=== PATIENT | male | born 1945 | race Caucasian/White ===

== ENCOUNTER 2017-12-05 11:54 | Observation (INO) | payer MEDICARE, OTHER ==
[2017-12-05] MEDS ORDERED: ASPIRIN 81 MG PO STA (11:58)
[2017-12-05] MEDS ORDERED: NITROGLYCERIN OINT 1 INCH/GM PACKET TOPICAL STA (11:58)
--- NOTE | 2017-12-05 12:00 | ED ---
General Adult HPI - General Stated complaint: SOB Time Seen by Provider: 12/05/17 11:55 Source: RN notes reviewed - History of Present Illness Initial comments: This is a 72-year-old male who presents emergency room with a past medical history significant for hypertension and high cholesterol. Patient is a poor historian. Patient was at the [facility] having some injections into his lower back. After which she complained of some chest pain shortness of breath and dizziness. According to the patient the chest pain was a 2 or 3 out of 10 now it's about a 1 out of 10. Patient states she still feeling a little lightheaded and still complains of mild shortness of breath. Patient denies any radiation of the pain. Patient denies any recent fever chills or cough. Patient denies any syncopal episode or near syncopal episode. Patient denies abdominal pain patient denies nausea vomiting or diarrhea. Patient denies any recent history of trauma or illness. - Related Data Home Medications Medication Instructions Recorded Confirmed ALPRAZolam [Xanax] 0.25 mg PO BID PRN 03/30/15 12/05/17 Atenolol [Tenormin] 25 mg PO DAILY 03/30/15 12/05/17 Enalapril [Vasotec] 2.5 mg PO DAILY 03/30/15 12/05/17 Latanoprost Ophth [Xalatan 0.005%] 1 drops BOTH EYES HS 03/30/15 12/05/17 Omeprazole [PriLOSEC] 20 mg PO AC-BID 03/30/15 12/05/17 Simvastatin [Zocor] 40 mg PO DAILY 03/30/15 12/05/17 Aspirin 81 mg PO DAILY 07/06/15 12/05/17 Calcium Carbonate/Vitamin D3 1 tab PO DAILY 12/05/17 12/05/17 [Calcium 600-Vit D3 400 Caplet] Meloxicam [Mobic] 15 mg PO DAILY 12/05/17 12/05/17 Allergies Allergy/AdvReac Type Severity Reaction Status Date / Time No Known Allergies Allergy Verified 12/05/17 12:19 Review of Systems ROS Statement: Those systems with pertinent positive or pertinent negative responses have been documented in the HPI. ROS Other: All systems not noted in ROS Statement are negative. Past Medical History Past Medical History: GERD/Reflux, Hyperlipidemia, Hypertension, Myocardial Infarction ([place]) Additional Past Medical History / Comment(s): Colon polyps, [place] Last Myocardial Infarction Date:: 2004 History of Any Multi-Drug Resistant Organisms: None Reported Past Surgical History: Heart Catheterization, Prostate Surgery Past Anesthesia/Blood Transfusion Reactions: No Reported Reaction Past Psychological History: Anxiety Smoking Status: Never smoker Past Alcohol Use History: None Reported Past Drug Use History: None Reported - Past Family History Brother(s) Family Medical History: Myocardial Infarction ([place]) General Exam - General Exam Comments Initial Comments: GENERAL: Patient is well-developed and well-nourished. Patient is nontoxic and well- hydrated and is in no acute distress. ENT: Neck is soft and supple. No significant lymphadenopathy is noted. Oropharynx is clear. Moist mucous membranes. Neck has full range of motion without eliciting any pain. EYES: The sclera were anicteric and conjunctiva were pink and moist. Extraocular movements were intact and pupils were equal round and reactive to light. Eyelids were unremarkable. PULMONARY: Unlabored respirations. Good breath sounds bilaterally. No audible rales rhonchi or wheezing was noted. CARDIOVASCULAR: There is a regular rate and rhythm without any murmurs gallops or rubs. ABDOMEN: Soft and nontender with normal bowel sounds. No palpable organomegaly was noted. There is no palpable pulsatile mass. SKIN: Skin is clear with no lesions or rashes and otherwise unremarkable. NEUROLOGIC: Patient is alert and oriented 2. Cranial nerves II through XII are grossly intact. Motor and sensory are also intact. Normal speech, volume and content. Symmetrical smile. MUSCULOSKELETAL: Normal extremities with adequate strength and full range of motion. No lower extremity swelling or edema. No calf tenderness. LYMPHATICS: No significant lymphadenopathy is noted PSYCHIATRIC: Normal psychiatric evaluation. Normal interpersonal interactions appears functionally intact in deals appropriately with others. No signs of depression. No signs of anxiety. Course Vital Signs 12/05/17 12/05/17 11:59 12:46 Temperature 97.3 F L Pulse Rate 54 L 56 L Respiratory 18 18 Rate Blood Pressure 193/94 168/85 O2 Sat by Pulse 93 L 98 Oximetry Medical Decision Making - Medical Decision Making EKG shows sinus bradycardia 55 bpm [place] interval is 162 QRS is 84 QT interval is 444 QTC is 424. Patient's EKG shows no ST segment elevation or depression or T wave normalities are noted. Chest x-ray shows no acute abnormality. After patient received nitro paste patient's chest pain resolved. Spoke with Dr. Vaughn he agreed the patient needed to be admitted I admitted the patient I wrote admitting orders - Lab Data Result diagrams: 12/05/17 12:00 12/05/17 12:00 Lab Results 12/05/17 12/05/17 12/05/17 Range/Units 12:00 12:00 12:00 WBC 15.4 H (3.8-10.6) k/uL RBC 5.06 (4.30-5.90) m/uL Hgb 15.0 (13.0-17.5) gm/dL Hct 45.0 (39.0-53.0) % MCV 89.0 (80.0-100.0) fL MCH 29.7 (25.0-35.0) pg MCHC 33.4 (31.0-37.0) g/dL RDW 13.7 (11.5-15.5) % Plt Count 175 (150-450) k/uL Neutrophils % (Manual) 29 % Lymphocytes % (Manual) 67 % Monocytes % (Manual) 3 % Eosinophils % (Manual) 2 % Neutrophils # (Manual) 4.47 (1.3-7.7) k/uL Lymphocytes # (Manual) 10.32 H (1.0-4.8) k/uL Monocytes # (Manual) 0.46 (0-1.0) k/uL Eosinophils # (Manual) 0.31 (0-0.7) k/uL Nucleated RBCs 0 (0-0) /100 WBC Poikilocytosis (manual Present Anisocytosis (manual) Present PT (9.0-12.0) sec INR (<1.2) APTT (22.0-30.0) sec Sodium 143 (137-145) mmol/L Potassium 4.5 (3.5-5.1) mmol/L Chloride 105 (98-107) mmol/L Carbon Dioxide 27 (22-30) mmol/L Anion Gap 11 mmol/L BUN 28 H (9-20) mg/dL Creatinine 1.10 (0.66-1.25) mg/dL Est GFR (MDRD) Af Amer >60 (>60 ml/min/1.73 sqM) Est GFR (MDRD) Non-Af >60 (>60 ml/min/1.73 sqM) Glucose 125 H (74-99) mg/dL Calcium 9.5 (8.4-10.2) mg/dL Magnesium 2.1 (1.6-2.3) mg/dL Total Bilirubin 0.5 (0.2-1.3) mg/dL AST 21 (17-59) U/L ALT 31 (21-72) U/L Alkaline Phosphatase 213 H (38-126) U/L Total Creatine Kinase 48 L (55-170) U/L CK-MB (CK-2) 0.9 (0.0-2.4) ng/mL CK-MB (CK-2) Rel Index 1.9 Troponin I <0.012 (0.000-0.034) ng/mL Total Protein 7.4 (6.3-8.2) g/dL Albumin 4.3 (3.5-5.0) g/dL 12/05/17 Range/Units 12:00 WBC (3.8-10.6) k/uL RBC (4.30-5.90) m/uL Hgb (13.0-17.5) gm/dL Hct (39.0-53.0) % MCV (80.0-100.0) fL MCH (25.0-35.0) pg MCHC (31.0-37.0) g/dL RDW (11.5-15.5) % Plt Count (150-450) k/uL Neutrophils % (Manual) % Lymphocytes % (Manual) % Monocytes % (Manual) % Eosinophils % (Manual) % Neutrophils # (Manual) (1.3-7.7) k/uL Lymphocytes # (Manual) (1.0-4.8) k/uL Monocytes # (Manual) (0-1.0) k/uL Eosinophils # (Manual) (0-0.7) k/uL Nucleated RBCs (0-0) /100 WBC Poikilocytosis (manual Anisocytosis (manual) PT 10.0 (9.0-12.0) sec INR 1.0 (<1.2) APTT 22.1 (22.0-30.0) sec Sodium (137-145) mmol/L Potassium (3.5-5.1) mmol/L Chloride (98-107) mmol/L Carbon Dioxide (22-30) mmol/L Anion Gap mmol/L BUN (9-20) mg/dL Creatinine (0.66-1.25) mg/dL Est GFR (MDRD) Af Amer (>60 ml/min/1.73 sqM) Est GFR (MDRD) Non-Af (>60 ml/min/1.73 sqM) Glucose (74-99) mg/dL Calcium (8.4-10.2) mg/dL Magnesium (1.6-2.3) mg/dL Total Bilirubin (0.2-1.3) mg/dL AST (17-59) U/L ALT (21-72) U/L Alkaline Phosphatase (38-126) U/L Total Creatine Kinase (55-170) U/L CK-MB (CK-2) (0.0-2.4) ng/mL CK-MB (CK-2) Rel Index Troponin I (0.000-0.034) ng/mL Total Protein (6.3-8.2) g/dL Albumin (3.5-5.0) g/dL Disposition Clinical Impression: Chest pain, Dyspnea Disposition: ADMITTED IP TO THIS HOSP Referrals: None,Stated [Primary Care Provider] - 1-2 days Time of Disposition: 13:50
[2017-12-05 12:28] LABS: ALT 31 U/L (21-72); AST 21 U/L (17-59); Albumin 4.3 g/dL (3.5-5.0); Alkaline Phosphatase 213 U/L (38-126); Anion Gap 11 mmol/L; Blood Urea Nitrogen 28 mg/dL (9-20); Calcium 9.5 mg/dL (8.4-10.2); Carbon Dioxide 27 mmol/L (22-30); Chloride 105 mmol/L (98-107); Glucose 125 mg/dL (74-99); Magnesium 2.1 mg/dL (1.6-2.3); Potassium 4.5 mmol/L (3.5-5.1); Sodium 143 mmol/L (137-145); Total Bilirubin 0.5 mg/dL (0.2-1.3); Total Protein 7.4 g/dL (6.3-8.2)
[2017-12-05 12:29] LABS: Partial Thromboplastin Time 22.1 sec (22.0-30.0)
--- NOTE | 2017-12-05 12:34 | XR ---
EXAMINATION TYPE: XR chest 2V DATE OF EXAM: 12/05/2017 COMPARISON: Chest x-ray December 23, 2013. CT chest abdomen and pelvis May 15, 2016 HISTORY: Chest pain and shortness of breath. TECHNIQUE: Frontal and lateral views of the chest are obtained. FINDINGS: Patchy basilar reticulonodular opacities are felt present. No large pleural effusion or pn eumothorax is seen bilaterally. The cardiac silhouette size is upper limits of normal currently. The osseous structures are intact. IMPRESSION: Possible developing patchy bibasilar reticulonodular infiltrates. Consider progress study .
[2017-12-05 12:41] LABS: Creatine Kinase 48 U/L (55-170)
[2017-12-05 12:52] LABS: Creatine Kinase MB 0.9 ng/mL (0.0-2.4); MCH 29.7 pg (25.0-35.0); MCHC 33.4 g/dL (31.0-37.0); Mean Platelet Volume 7.1; Platelet Count 175 k/uL (150-450); RBC 5.06 m/uL (4.30-5.90); RDW 13.7 % (11.5-15.5); Troponin I <0.012 ng/mL (0.000-0.034); WBC 15.4 k/uL (3.8-10.6)
[2017-12-05 13:11] LABS: Eosinophils # (M) 0.31 k/uL (0-0.7); Lymphocytes # (M) 10.32 k/uL (1.0-4.8); Monocytes # (M) 0.46 k/uL (0-1.0); Neutrophils # (M) 4.47 k/uL (1.3-7.7); Neutrophils % (M) 29 %; Nucleated Red Blood Cells 0 /100 WBC (0-0); Total Cells Counted 200
[2017-12-05 13:12] LABS: Anisocytosis (M) Present; Poikilocytosis (M) Present
[2017-12-05] MEDS ORDERED: NITROGLYCERIN SL TABS 0.4 MG TAB SUBLINGUAL PRN (13:50)
[2017-12-05] MEDS ORDERED: ACETAMINOPHEN TAB 325 MG TAB PO STA (14:32)
[2017-12-05] MEDS ORDERED: ALPRAZolam 0.25 MG TAB PO PRN (17:52)
[2017-12-05] MEDS: NITROGLYCERIN OINT 1 INCH/GM PACKET TOPICAL SCH (19:14)
[2017-12-05 19:31] VITALS: RESP 16
[2017-12-05 19:38] LABS: Creatine Kinase 46 U/L (55-170)
[2017-12-05 19:50] LABS: Creatine Kinase MB 0.8 ng/mL (0.0-2.4); Troponin I <0.012 ng/mL (0.000-0.034)
[2017-12-05] MEDS ORDERED: LATANOPROST 0.005% OPHTH DROPS 2.5 ML BTL BOTH EYES SCH (21:00)
[2017-12-06 00:42] LABS: Creatine Kinase 48 U/L (55-170)
[2017-12-06 00:58] LABS: Creatine Kinase MB 0.8 ng/mL (0.0-2.4); Troponin I <0.012 ng/mL (0.000-0.034)
[2017-12-06] MEDS: NITROGLYCERIN OINT 1 INCH/GM PACKET TOPICAL SCH ×2 (03:00→05:06)
[2017-12-06 06:20] LABS: Cholesterol 160 mg/dL (<200); HDL Cholesterol 54 mg/dL (40-60); LDL Cholesterol,Calculated 79 mg/dL (0-99); Triglycerides 137 mg/dL (<150)
[2017-12-06] MEDS ORDERED: PANTOPRAZOLE 40 MG TABLET PO SCH (07:30)
[2017-12-06] MEDS ORDERED: AMINOPHYLLINE 250 MG/10 ML VIAL IV ONE (08:00)
[2017-12-06] MEDS ORDERED: AMINOPHYLLINE 500 MG/20 ML VIAL IV PRN (08:07)
[2017-12-06] MEDS ORDERED: REGADENOSON 0.4 MG/5 ML SYRINGE IV ONE (08:07)
[2017-12-06 08:14] VITALS: TEMP 97.9
[2017-12-06] MEDS ORDERED: ASPIRIN 325 MG TAB PO SCH (09:00)
[2017-12-06] MEDS ORDERED: ATENOLOL 25 MG TAB PO SCH (09:00)
[2017-12-06] MEDS ORDERED: ASPIRIN 81 MG PO SCH (09:00)
[2017-12-06] MEDS ORDERED: LISINOPRIL 5 MG TAB PO SCH (09:00)
[2017-12-06] MEDS ORDERED: ATORVASTATIN 20 MG TAB PO SCH (09:00)
--- NOTE | 2017-12-06 09:00 | CONS ---
CONSULTATION Mr. Remy is a 72-year-old male with known history of hypertension and hyperlipidemia who presented with symptoms of chest discomfort. He underwent an epidural injection yesterday and he felt somewhat dyspneic. Has some dizziness and vague chest discomfort. According to him, he has been having the discomfort for a long time. He is not active physically. He has some dyspnea on exertion. With activity no peripheral edema. No PND, no orthopnea. He has some dizziness and palpitation, but no syncope. He has been followed by Dr. VC Arce in the past and has underwent coronary angiography in 2006 that revealed no evidence of obstructive coronary artery disease. He had a stress test in January 2016 that revealed no inducible ischemia. His left ventricular systolic function by echocardiography was preserved. He has mild-to- moderate tricuspid regurgitation and mild mitral regurgitation. His coronary risk factors are remarkable for hypertension, hyperlipidemia. He is a nonsmoker, nondiabetic. MEDICATION: At home include vitamin D, aspirin, simvastatin 40 mg daily. Mobic 15 mg daily, Vasotec 2.5 mg daily and atenolol 25 mg daily. REVIEW OF SYSTEMS: RESPIRATORY SYSTEM: He has no history of documented asthma, emphysema or bronchitis. GI SYSTEM: No recent GI bleed. No peptic ulcer disease. SYSTEM: No dysuria or hematuria. NERVOUS SYSTEM: No stroke or seizure. MUSCULOSKELETAL: He has chronic back pain. PHYSICAL EXAMINATION: A 72-year-old male, alert, oriented, in no apparent distress. Blood pressure 140/70 with a heart rate in the 60s. HEAD: Normocephalic/ EYES: Sclerae nonicteric. NECK: Good upstroke. No bruit. No jugular venous distention. LUNGS: Clear to auscultation. HEART: Regular rate and rhythm, S1, S2. No S3. No rub or gallop. ABDOMEN: Soft, nontender. Positive bowel sounds. No organomegaly. EXTREMITIES: No edema. Intact pulses. LAB DATA: Revealed hemoglobin of 15, white blood cell 15.4, potassium 4.5, BUN and creatinine 28 and 1.0. Troponin less than 0.012 for 3 samples. Cholesterol 160, LDL of 79. EKG revealed a sinus mechanism with a normal axis and intervals at a rate of 55. IMPRESSION: 1. Chest discomfort, has atypical feature for ischemic heart disease, probably noncardiac. 2. History of hypertension. 3. Hyperlipidemia. 4. History of chronic back pain. RECOMMENDATION: I have recommended to stop the nitrate and I will proceed with a Lexiscan myocardial perfusion imaging as well as an echocardiogram and depending on those findings, further recommendation will be made. Thank you for this consult. Will follow with you. JACOBO / IJN: [id number] /
[2017-12-06 11:31] VITALS: BP 174/92; PULSE 69
--- NOTE | 2017-12-06 11:39 | NM ---
EXAMINATION TYPE: NM stress lexiscan cardiolite DATE OF EXAM: 12/06/2017 COMPARISON: NONE HISTORY: Chest pain TECHNIQUE: After the intravenous administration of 11 mCi Tc 99m Sestamibi - Cardiolite resting SPEC T images acquired 49 minutes post injection. The patient received 0.4mg Lexiscan, 30 mCi Tc 99m Sestamibi - Stress images obtained 36 minutes post injection FINDINGS: There is diminished radiotracer accumulation along the inferior wall on both rest and stress images. This may be a prior infarct. This is not clearly identified as a diaphragm artifact. The liver howeve r does appear to be elevated in relation to the heart. Reversible perfusion defect is not identified. Correlate with EKG changes. The ejection fraction is calculated to be normal at 74%. Gated wall motion appears normal. IMPRESSION: 1. Fixed defect along the inferior wall. Prior infarct may be present. Diaphragm artifact is conside red less likely. Correlate with EKG changes.
[2017-12-06] MEDS ORDERED: CALCIUM CARB-VIT D 500MG-200UN 1 EACH TAB PO SCH (12:00)
--- NOTE | 2017-12-06 13:35 | P.HPIM ---
History of Present Illness H&P Date: 12/05/17 Chief Complaint: Chest pain, shortness of breath, abnormal EKG, shortly reaction to epidural 72-year-old male who was apparently at [facility] today for epidural injection when he developed to have significant midsternal chest pain to out of 10 symptoms become significantly bit worse along with significant shortness of breath. He developed to have lightheadedness and not feeling well mild arrhythmia palpitation and cold sweat with nausea feeling. With the above symptoms patient ended up being sent to the emergency department. Was seen and evaluated at [facility] for the above problem his symptom with chest tightness had improved with nitroglycerin with a current symptom along with the slight abnormality in his EKG decided to admit patient to the observation unit have cardiology seen him with do serial cardiac enzyme over the next 24 hours. Review of Systems Constitutional: Reports fatigue, Reports malaise, Denies as per HPI, Denies anorexia, Denies chills, Denies chronic headaches, Denies chronic pain, Denies daytime sleepiness, Denies fever, Denies lethargy, Denies night sweats, Denies poor appetite, Denies sweats, Denies weakness, Denies weight gain, Denies weight loss Eyes: bilateral as per HPI, bilateral blurred vision Ears: bilateral: decreased hearing, ear discharge Ears, nose, mouth and throat: Reports nasal congestion, Reports nasal discharge , Reports nose pain, Reports sinus pain, Reports sinus pressure, Denies as per HPI, Denies ant. neck pain, Denies bleeding gums, Denies dental pain, Denies dysphagia, Denies epistaxis, Denies headache, Denies hoarseness, Denies mouth pain, Denies neck fullness/pressure, Denies neck lump, Denies odynophagia, Denies post-nasal drip, Denies swelling in mouth, Denies swelling in throat, Denies sore throat, Denies vertigo, Denies voice changes Cardiovascular: Reports chest pain, Reports decreased exercise tolerance, Reports dyspnea on exertion, Reports high blood pressure, Reports irregular heart beat, Reports lightheadedness, Reports orthopnea, Reports paroxysmal nocturnal dyspnea, Reports rapid heart beat, Reports shortness of breath, Denies as per HPI, Denies claudication, Denies edema, Denies leg edema, Denies palpitations, Denies phlebitis, Denies syncope Respiratory: Reports congestion, Reports cough, Reports dyspnea, Reports pain on inspiration, Denies as per HPI, Denies cough with sputum, Denies excessive sputum, Denies hemoptysis, Denies home oxygen, Denies pain, Denies pleurisy, Denies respiratory infections, Denies sleep apnea, Denies snoring, Denies wheezing Gastrointestinal: Reports abdominal pain, Reports bloating, Reports change in bowel habits, Reports dyspepsia, Reports early satiety, Reports indigestion, Reports nausea, Denies as per HPI, Denies belching, Denies BRBPR, Denies coffee ground emesis, Denies constipation, Denies diarrhea, Denies excessive gas, Denies heartburn, Denies hematemesis, Denies hematochezia, Denies jaundice, Denies lactose intolerance, Denies loss of appetite, Denies melena, Denies vomiting Genitourinary: Reports flank pain, Reports nocturia, Reports polyuria, Denies as per HPI, Denies decreased libido, Denies difficulties fathering child, Denies discharge, Denies dysuria, Denies erectile dysfunction, Denies genital pain, Denies genital sores, Denies hematuria, Denies impotence, Denies incontinence, Denies kidney stones, Denies testicular lump, Denies testicular pain, Denies urinary frequency, Denies urinary hesitancy, Denies urinary retention Musculoskeletal: Reports arm numbness/tingling, Denies as per HPI, Denies atrophy, Denies fractures, Denies frequent falls, Denies gait dysfunction, Denies hot joints, Denies leg numbness/tingling, Denies limitation of motion, Denies loss of height, Denies low back pain, Denies morning stiffness, Denies muscle cramps, Denies muscle weakness, Denies myalgias, Denies neck pain, Denies neck stiffness, Denies prior amputations, Denies redness of joints, Denies shooting arm pain, Denies shooting leg pain Integumentary: Reports pruritus, Reports rash, Denies as per HPI, Denies acne, Denies boils, Denies brittle nails, Denies change in hair/nails, Denies color changes, Denies darkening of skin, Denies depigmentation, Denies dryness, Denies foot/leg ulcers, Denies growths, Denies hirsutism, Denies lesions, Denies onychomycosis, Denies sores, Denies striae, Denies unusual bruising, Denies wounds Neurological: Reports ataxia, Reports gait dysfunction, Reports paresthesias, Reports tingling, Reports tremors, Reports weakness, Denies as per HPI, Denies aphasia, Denies balance difficulties, Denies burning pain, Denies change in mentation, Denies change in smell/taste, Denies change in speech, Denies confusion, Denies convulsions, Denies double vision, Denies head injury, Denies headaches, Denies hearing difficulties, Denies lack of coordination, Denies loss of vision, Denies memory loss, Denies migraines, Denies motor disturbance, Denies numbness, Denies paralysis, Denies seizures, Denies sensory deficit, Denies spasticity, Denies syncope, Denies tic, Denies transient paralysis, Denies vertigo, Denies visual changes Psychiatric: Reports anhedonia, Reports anxiety, Reports depression, Reports disorientation, Reports hallucinations, Reports irritability, Reports sadness/ tearfulness, Denies as per HPI, Denies anxiety attacks, Denies change in appetite, Denies change in libido, Denies change in sleep habits, Denies confusion, Denies difficulty concentrating, Denies hopelessness, Denies hypersomnia, Denies insomnia, Denies memory loss, Denies mood swings, Denies paranoia, Denies sleep disturbances, Denies suicidal ideation Endocrine: Reports cold intolerance, Reports fatigue, Reports nocturia, Reports polyuria, Denies as per HPI, Denies deepening of the voice, Denies excessive sweating, Denies excessive thirst, Denies flushing, Denies heat intolerance, Denies high blood sugars, Denies increase in ring/shoe/hat size, Denies low blood sugars, Denies palpitations, Denies polydipsia, Denies polyphagia, Denies proptosis, Denies recent glucocorticoid use, Denies thyroid mass, Denies weight change Hematologic/Lymphatic: Denies as per HPI, Denies easy bleeding, Denies easy bruising, Denies lymphadenopathy, Denies lymphedema, Denies thrombophilia Allergic/Immunologic: Denies as per HPI, Denies allergic rhinitis, Denies anaphylaxis, Denies angioedema, Denies gluten intolerance, Denies persistent infections, Denies seasonal allergies, Denies urticaria, Denies wheezing Past Medical History Past Medical History: Cancer, Eye Disorder, GERD/Reflux, GI Bleed, Hyperlipidemia, Hypertension, Myocardial Infarction ([place]), Osteoarthritis (OA), Prostate Disorder Additional Past Medical History / Comment(s): Colon polyps,SHINGLES SEP 2017, LT EAR [place], HX PROSTATE CANCER(SX) PT STATED TOLD AT [facility] A WEEK AGO THAT THE CANCER CAME BACK-NO TX YET Last Myocardial Infarction Date:: 2004 History of Any Multi-Drug Resistant Organisms: None Reported Past Surgical History: Heart Catheterization, Prostate Surgery Additional Past Surgical History / Comment(s): COLONOSCOPY,BACK INJECTIONS Past Anesthesia/Blood Transfusion Reactions: No Reported Reaction Smoking Status: Current some day smoker - Past Family History Father Family Medical History: Myocardial Infarction (ID) Mother Family Medical History: No Reported History Additional Family Medical History / Comment(s): " FROM OLD AGE" Brother(s) Family Medical History: Myocardial Infarction ([place]) Medications and Allergies Home Medications Medication Instructions Recorded Confirmed Type ALPRAZolam [Xanax] 0.25 mg PO BID PRN 03/30/15 12/05/17 History Atenolol [Tenormin] 25 mg PO DAILY 03/30/15 12/05/17 History Enalapril [Vasotec] 2.5 mg PO DAILY 03/30/15 12/05/17 History Latanoprost Ophth [Xalatan 0.005%] 1 drops BOTH EYES HS 03/30/15 12/05/17 History Omeprazole [PriLOSEC] 20 mg PO AC-BID 03/30/15 12/05/17 History Simvastatin [Zocor] 40 mg PO DAILY 03/30/15 12/05/17 History Aspirin 81 mg PO DAILY 07/06/15 12/05/17 History Calcium Carbonate/Vitamin D3 1 tab PO DAILY 12/05/17 12/05/17 History [Calcium 600-Vit D3 400 Caplet] Meloxicam [Mobic] 15 mg PO DAILY 12/05/17 12/05/17 History Allergies Allergy/AdvReac Type Severity Reaction Status Date / Time No Known Allergies Allergy Verified 12/05/17 12:19 Physical Exam Vitals: Vital Signs Temp Pulse Pulse Resp BP BP Pulse Ox 12/05/17 15:15 97.4 F L 66 18 177/94 93 L 12/05/17 14:31 61 20 179/99 97 12/05/17 12:46 56 L 18 168/85 98 12/05/17 11:59 97.3 F L 54 L 18 193/94 93 L Intake and Output 12/05/17 12/05/17 12/05/17 06:59 14:59 22:59 Other: Weight 83.915 kg 82.5 kg Patient Weight 12/06/17 06:59 Weight 82.5 kg - Constitutional General appearance: no average body habitus, cooperative, no disheveled, no mild distress, no morbidly obese, no acute distress, no obese, no severe distress, no thin - EENT Eyes: no abnormal pupil, no anicteric sclerae, no disc margins sharp, no edentulous, no EOMI, no PERRLA, no fundus normal, no photophobia, no dentition normal, no poor dentition, no ptosis, no scleral icterus, normal appearance ENT: no hard of hearing, no hearing grossly normal, no NA/AT, normal oropharynx , no other, no pharyngeal erythema, no thrush, no tonsillar exudates, no tonsillar swelling Ears: bilateral: normal - Neck Neck: no lymphadenopathy, normal ROM, no other, no rigidity, no stridor, no thyromegaly Carotids: bilateral: upstroke normal, upstroke delayed Thyroid: bilateral: normal size, enlarged - Respiratory Respiratory: bilateral: CTA, diminished, dullness, rales - Cardiovascular Rhythm: regular Heart sounds: normal: S1, S2 Abnormal Heart Sounds: systolic murmur, S3 Gallop - Gastrointestinal General gastrointestinal: no absent bowel sounds, decreased bowel sounds, distended, no hepatomegaly, no hyperactive bowel sounds, no normal bowel sounds , no organomegaly, no rigid, no scaphoid, soft, no splenomegaly, no tenderness, no umbilical hernia, no ventral hernia - Integumentary Integumentary: no calor, no cellulitis, no cyanotic, no decreased turgor, no flushed, no jaundiced, normal, no normal turgor, pale, rash, no ulcer - Neurologic Neurologic: CNII-XII intact - Musculoskeletal Musculoskeletal: gait normal, generalized weakness, strength equal bilaterally, no right sided weakness, no left sided weakness - Psychiatric Psychiatric: A&O x's 3, appropriate affect Results CBC & Chem 7: 12/05/17 12:00 12/05/17 12:00 Labs: Abnormal Lab Results - Last 24 Hours (Table) 12/05/17 12/05/17 12/05/17 Range/Units 12:00 12:00 12:00 WBC 15.4 H (3.8-10.6) k/uL Lymphocytes # (Manual) 10.32 H (1.0-4.8) k/uL Pathologist Review See comment A BUN 28 H (9-20) mg/dL Glucose 125 H (74-99) mg/dL Alkaline Phosphatase 213 H (38-126) U/L Total Creatine Kinase 48 L (55-170) U/L Assessment and Plan Assessment: 1 atypical chest pain: Not a clear etiology still could be cardiac at this point will admit patient to the hospital, serially of CK with troponin will be done consult cardiology will consider echocardiogram if any abnormality through the night patient might benefit from going for a stress test or heart catheter. 2 shortness of breath, patient does not require any oxygen is symptomatic improved on its own so far. 3 hypertension: Has been doing well on Tenormin 25 mg daily and enalapril 2.5 g a day. 4 hyperlipidemia: Has been on Zocor 40 mg a day. 5 severe GERD: Has been on Prilosec 20 mg twice a day. 6 chronic lower back pain: Patient has been doing epidural with pain management. Next 7 history of CAD with history of PE or ID: Apparently seeing cardiology regular basis. 8 history of breath prostate cancer: In remission has been doing well. DVT prophylaxis: Patient will be on heparin, Venodyne boots and knee-high ANNA hose. CODE STATUS: Full code. Expectation from this admission: Patient in the hospital for 1-2 nights.
--- NOTE | 2017-12-06 14:12 | P.DS ---
Providers Date of admission: 12/05/17 13:50 Expected date of discharge: 12/06/17 Attending physician: Hernan Vaughn Consults: 12/05/17 13:50 Consult Physician Urgent Consulting Provider: [facility] Consult Reason/Comments: Chest pain, dyspnea Do you want consulting provider notified?: Yes Primary care physician: Stated None Hospital Course: 72-year-old male who was apparently at [facility] today for epidural injection when he developed to have significant midsternal chest pain to out of 10 symptoms become significantly bit worse along with significant shortness of breath. He developed to have lightheadedness and not feeling well mild arrhythmia palpitation and cold sweat with nausea feeling. With the above symptoms patient ended up being sent to the emergency department. Was seen and evaluated at [facility] for the above problem his symptom with chest tightness had improved with nitroglycerin with a current symptom along with the slight abnormality in his EKG decided to admit patient to the observation unit have cardiology seen him with do serial cardiac enzyme over the next 24 hours. 12/06: Patient has been seen by cardiology and Lexiscan stress test ordered. There was a fixed defect along the inferior wall and prior infarct may be present. Patient has been cleared for discharge by cardiology and will be discharged home in stable condition with plan to follow-up with his special education professional and Dr. Glover. Echocardiogram has been done and report is pending at the time of discharge. Discharge diagnoses: 1 atypical chest pain 2 shortness of breath 3 hypertension 4 hyperlipidemia 5 severe GERD 6 chronic lower back pain 7 history of CAD with CA 8 history of breath prostate cancer: In remission Discharge plan: Return home Impression and plan of care have been directed as dictated by the signing physician. Zeinab Connelly nurse practitioner acting as scribe for signing physician. Patient Condition at Discharge: Good Plan - Discharge Summary Discharge Rx Participant: No New Discharge Prescriptions: Continue Simvastatin [Zocor] 40 mg PO DAILY Latanoprost Ophth [Xalatan 0.005%] 1 drops BOTH EYES HS Enalapril [Vasotec] 2.5 mg PO DAILY Atenolol [Tenormin] 25 mg PO DAILY ALPRAZolam [Xanax] 0.25 mg PO BID PRN PRN Reason: Anxiety Omeprazole [PriLOSEC] 20 mg PO AC-BID Aspirin 81 mg PO DAILY Calcium Carbonate/Vitamin D3 [Calcium 600-Vit D3 400 Caplet] 1 tab PO DAILY Meloxicam [Mobic] 15 mg PO DAILY Discharge Medication List ALPRAZolam [Xanax] 0.25 mg PO BID PRN 03/30/15 [History] Atenolol [Tenormin] 25 mg PO DAILY 03/30/15 [History] Enalapril [Vasotec] 2.5 mg PO DAILY 03/30/15 [History] Latanoprost Ophth [Xalatan 0.005%] 1 drops BOTH EYES HS 03/30/15 [History] Omeprazole [PriLOSEC] 20 mg PO AC-BID 03/30/15 [History] Simvastatin [Zocor] 40 mg PO DAILY 03/30/15 [History] Aspirin 81 mg PO DAILY 07/06/15 [History] Calcium Carbonate/Vitamin D3 [Calcium 600-Vit D3 400 Caplet] 1 tab PO DAILY 05/15 [History] Meloxicam [Mobic] 15 mg PO DAILY 12/05/17 [History] Follow up Appointment(s)/Referral(s): Garth Glover MD [REFERRING] - 1 Week Zuleika Arce MD [STAFF PHYSICIAN] - 12/27/17 4:00 pm Patient Instructions/Handouts: Chest Pain (GEN) Discharge Disposition: HOME SELF-CARE
--- NOTE | 2017-12-06 16:35 | ECHOF ---
Referral Reason: MEASUREMENTS -------- HEIGHT: 165.1 cm WEIGHT: 82.1 kg BP: RVIDd: 2.2 cm (< 3.3) IVSd: 1.1 cm (0.6 - 1.1) LVIDd: 4.2 cm (3.9 - 5.3) LVPWd: 1.1 cm (0.6 - 1.1) IVSs: 1.3 cm LVIDs: 3.4 cm LVPWs: 1.2 cm LA Diam: 3.9 cm (2.7 - 3.8) LAESV Index (A-L): 27.90 ml/m Ao Diam: 2.7 cm (2.0 - 3.7) AV Cusp: 1.4 cm (1.5 - 2.6) LA Diam: 4.3 cm (2.7 - 3.8) MV EXCURSION: 17.245 mm (> 18.000) MV EF SLOPE: 97 mm/s (70 - 150) EPSS: 0.4 cm MV E Malcolm: 0.85 m/s MV DecT: 245 ms MV A Malcolm: 0.62 m/s MV E/A Ratio: 1.35 AV maxP.76 mmHg AV maxP.76 mmHg AV meanP.38 mmHg RAP: 5.00 mmHg RVSP: 45.05 mmHg FINDINGS -------- Sinus rhythm. This was a technically excellent study. LV size, wall thickness and systolic function are normal, with an EF greater than 55%. The left awa tricular size is normal. The right ventricle is normal in size. Normal LA size by volume 22+/-6 ml/m2. The right atrial size is normal. Peak/mean gradient across the Aortic Valve is 19.76mmHg / 8.38mmHg. Normally functioning bioprosthe tic valve. Mild mitral regurgitation is present. Mild tricuspid regurgitation present. There is mild pulmonary hypertension. The right ventricular systolic pressure, as measured by Doppler, is 45.05mmHg. Trace/mild (physiologic) pulmonic regurgitation. The aortic root size is normal. There is no pericardial effusion. CONCLUSIONS -------- 1. Sinus rhythm. 2. LV size, wall thickness and systolic function are normal, with an EF greater than 55%. 3. The left ventricular size is normal. 4. Normal LA size by volume 22+/-6 ml/m2. 5. Peak/mean gradient across the Aortic Valve is 19.76mmHg / 8.38mmHg. 6. Mild mitral regurgitation is present. 7. Mild tricuspid regurgitation present. 8. There is mild pulmonary hypertension. 9. Trace/mild (physiologic) pulmonic regurgitation. 10. The aortic root size is normal. 11. There is no pericardial effusion. GENERAL FREIGHT AGENT: Samra Alexander RDCS
--- NOTE | 2017-12-06 18:15 | EST ---
EXERCISE STRESS AGE: 72 SEX: Male. HT: 5'6" WT: 180 pounds. PROTOCOL: Lexiscan Cardiolite. STAGE: DURATION OF EXERCISE: HEART RATE REST: 61 BLOOD PRESSURE REST: 152/75 MAXIMUM HEART RATE ACHIEVED: 101 MAXIMUM BLOOD PRESSURE: 152/75 85% MPHR: 126 100% MPHR: 148 METS: INDICATIONS: Chest pain. CLINICAL INFORMATION: Baseline rhythm is sinus mechanism, rate 61, normal axis and intervals, normal electrocardiogram. Baseline blood pressure 152/75 mmHg. Patient received an injection of Lexiscan. Electrocardiographic monitoring revealed no evidence of diagnostic ischemic ST deviation. Cardiolite was injected per protocol. CONCLUSION: 1. Nondiagnostic electrocardiographic stress testing. 2. Nuclear images will be reported separately. MMODL / IJN: [id number] /
== END 2017-12-06 13:40 | disposition home or self-care (01) ==
LOC: EC 11:54 → 3OBS 13:50
PROVIDERS: ADMIT Internal Medicine Geriatric Medicine; ATTEND Internal Medicine Geriatric Medicine
DX: R07.89 Other chest pain (principal); R06.02 Shortness of breath; R42 Dizziness and giddiness; R11.0 Nausea; R61 Generalized hyperhidrosis; R00.2 Palpitations; R06.09 Other forms of dyspnea; I49.9 Cardiac arrhythmia, unspecified; I10 Essential (primary) hypertension; R94.31 Abnormal electrocardiogram [ECG] [EKG]; E78.5 Hyperlipidemia, unspecified; K21.9 Gastro-esophageal reflux disease without esophagitis; Z79.899 Other long term (current) drug therapy; G89.29 Other chronic pain; M54.5 Low back pain; I25.2 Old myocardial infarction; I25.10 Atherosclerotic heart disease of native coronary artery without angina pectoris; E78.00 Pure hypercholesterolemia, unspecified; F17.200 Nicotine dependence, unspecified, uncomplicated; Z85.46 Personal history of malignant neoplasm of prostate; Z86.010 Personal history of colon polyps; I08.1 Rheumatic disorders of both mitral and tricuspid valves; Z79.1 Long term (current) use of non-steroidal anti-inflammatories (NSAID); Z79.82 Long term (current) use of aspirin; H91.90 Unspecified hearing loss, unspecified ear; F41.9 Anxiety disorder, unspecified; M19.90 Unspecified osteoarthritis, unspecified site; H57.9 Unspecified disorder of eye and adnexa
CPT/HCPCS: 99285; 36415; 93005; 93017; 93306; 80061; 80053; 82550; 82553; 83735; 84484; 85025; 85610; 85730; 71046; 78452; G0378 ×2; A9500; J2785; J0280

== ENCOUNTER → 2018-10-15 | Outpatient (CLI) | payer MEDICARE, OTHER ==
--- NOTE | 2018-10-15 14:52 | CT ---
EXAMINATION TYPE: CT abdomen pelvis w con DATE OF EXAM: 10/15/2018 COMPARISON: 05/15/2016 HISTORY: 73-year-old male follow-up Prostate CA TECHNIQUE: Contiguous axial scanning of the abdomen and pelvis following administration of 100 ml Iso lakisha 300 IV contrast. Delayed images through the kidneys and coronal/sagittal reconstructions perform ed. CT DLP: 1163.1 mGycm Automated exposure control for dose reduction was used. FINDINGS: Heart normal size without pericardial effusion. Coronary vessel calcifications are present and are re markable for coronary artery disease. Large caliber to the main right and left pulmonary arteries measuring up to 2.8 cm suggests underlyin g pulmonary arterial hypertension. Focal pleural parenchymal scarring at the right base with fine int erstitial fibrotic changes and mild traction bronchiectasis. Overall changes are similar to prior exa m. No consolidation or pleural effusion. Stable nodular peripheral enhancement in the right hepatic dome probably representing vascular shunti ng. No other focal liver lesion or biliary ductal dilatation. Portal venous system is patent. Gallbladder, adrenal glands, kidneys, and pancreas appear within normal limits. Spleen mildly enlarged at 15.6 cm, slightly increased from 14.9 cm, previously. Hilar splenules are n oted. No dilated small bowel, free fluid, or free air. Some scattered prominent retroperitoneal lymph nodes in the left para-aortic region measure up to 7 m m versus 5 mm, previously. Right common iliac chain lymph node appears larger measuring 2.1 x 1.2 cm versus 1.6 x 1.1 cm, previo usly, axial image 61. 6 mm left common iliac chain lymph node is unchanged. Right external iliac chain lymph node measures 1.6 x 1.3 cm versus 1.0 x 0.7 cm, previously, axial im age 72. 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 Surgical clips along the pelvic sidewalls. Left external iliac chain lymph node measures 1.8 x 1.2 cm versus 1.5 x 1.0 cm, previously. Mild stool wording. Normal appendix. Sigmoid diverticulosis without pericolonic inflammatory change. Status post prostatectomy. The lymphocele continues to have mass effect on to the right lateral bladd er wall. Bones: New patchy osteosclerosis of the left ischium and pubic bones with subacute to chronic nonunit ed pathologic fractures. There is insufficiency fracture of the right sacral alar and degenerative ch anges throughout the lumbar spine. Grade 1 retrolisthesis at L2-L3. IMPRESSION: 1. RIGHT COMMON AND BILATERAL EXTERNAL ILIAC CHAIN LYMPH NODES SHOW INCREASING SIZE FROM 05/15/2016 ME ASURING UP TO 2.1 X 1.2 CM VERSUS 1.6 X 1.1 CM, PREVIOUSLY. A FEW LEFT PARAAORTIC RETROPERITONEAL LYM PH NODES ARE MINIMALLY MORE FULL MEASURING UP TO 7 MM VERSUS 5 MM, PREVIOUSLY. CORRELATE WITH PSA MONICA UES FOR DISEASE RECURRENCE. 2. NEW OSTEO-SCLEROSIS LEFT ISCHIUM AND LEFT PUBIC BONES SUSPICIOUS FOR OSTEOBLASTIC METASTASES. ASSO CIATED SUBACUTE TO CHRONIC INCOMPLETELY UNITED FRACTURES OF THE SUPERIOR AND INFERIOR PUBIC RAMI. 3. SUSPECT A SUBACUTE INSUFFICIENCY FRACTURE OF THE RIGHT SACRAL ALA. 4. RELATIVELY STABLE 4.6 X 2.7 CM RIGHT PELVIC SIDEWALL LYMPHOCELE WITH MASS EFFECT ONTO THE LATERAL WALL OF THE BLADDER. 5. MILD SPLENOMEGALY (15.6 CM).
--- NOTE | 2018-10-15 15:53 | NM ---
EXAMINATION TYPE: NM bone scan whole body DATE OF EXAM: 10/15/2018 COMPARISON: CT same day HISTORY: 73-year-old male history of prostate cancer, staging Technique: Delayed whole-body scanning was performed following the injection of 25 mCi Tc 99m MDP. An terior and posterior projection Images acquired 3 hours post injection. Injection site: Left AC FINDINGS: There is focal intense abnormal tracer activity centered in the left ischium and left pubic bones cor responding to the areas of abnormal sclerosis on the CT. Additional asymmetric increased tracer activ ity along the right sacral alar. Scattered degenerative tracer activity at the shoulders, posterior e lements of the lower thoracic and lower lumbar spine, medial compartments of the knees, and bilateral first MTP joints. Intense activity also seen at the lateral left wrist. IMPRESSION: 1. Abnormal tracer activity involving the left ischium and left pubic bone corresponding to the regio ns of abnormal sclerosis on CT. Correlate with PSA values as findings are suspicious for osteoblastic metastases. CT also showed underlying ununited pelvic fractures here, likely pathologic fractures. 2. Intense focal activity lateral aspect left wrist probably on a degenerative basis. Clinically joaquín elate. Radiographs may be helpful. 3. Right sacral alar insufficiency fracture.
== END | disposition home or self-care (01) ==
LOC: RADNMMAIN 09:53
PROVIDERS: ATTEND Urology
DX: R16.1 Splenomegaly, not elsewhere classified (principal); I89.8 Other specified noninfective disorders of lymphatic vessels and lymph nodes; M89.8X8 Other specified disorders of bone, other site; S32.10XA Unspecified fracture of sacrum, initial encounter for closed fracture; C61 Malignant neoplasm of prostate
CPT/HCPCS: 82565; 84520; 74177; 36415; 78306; A9503; Q9967

== ENCOUNTER → 2020-08-03 | Outpatient (CLI) | payer MEDICARE, OTHER ==
--- NOTE | 2020-08-03 12:30 | CT ---
EXAMINATION TYPE: CT abdomen pelvis w con DATE OF EXAM: 08/03/2020 COMPARISON: 10/15/2018 INDICATION: prostate CA DLP: 1001.4 mGycm, Automated exposure control for dose reduction was used. CONTRAST: 100 mL of Isovue 300. Study performed with Oral Contrast TECHNIQUE: Axial images were obtained from above the diaphragm to the pubic rami in the axial plane a t 5 mm thick sections. Reconstructed images are reviewed on the computer in the coronal plane. FINDINGS: Limited CT sections are obtained the lung bases. The lung bases are clear. Some coronary artery chrystal cification is present. CT ABDOMEN: Liver: Normal Spleen: Normal Pancreas: Normal Adrenal glands: The adrenal glands are normal. Gallbladder: Normal Kidneys: No masses are evident. No hydronephrosis is present. No cysts are present. Delayed images were obtained through the kidneys, which remain unremarkable. Aorta: Vascular calcification is within the aorta. Inferior vena cava: Normal. CT PELVIS: Loops of bowel within the abdomen and pelvis are normal. Few diverticuli are scattered within the si gmoid colon. There are loops of bowel which are incompletely distended or lack oral contrast limiti ng their evaluation. Appendix: Normal as visualized. Urinary bladder: Decompressed with limited evaluation. Genitourinary structures: Prostate is not identified. There is been a prior prostatectomy with multip le surgical clips present. Lymphadenopathy: There is a 2.7 x 3.9 cm hypodense area with peripheral calcification in the right il iac region. This is diminished in size from comparison. Previous additional iliac chain and not great er canal lymphadenopathy is not evident. Osseous structures: There is an old left pubic ramus fracture. There is thickening and sclerosis of t he ischio ramus. Facet changes are in the lower lumbar spine. IMPRESSIONS: 1. Left pubic ramus and ischio ramus fractures with thickening and sclerosis compatible with worseni ng metastatic disease. 2. Diminished size right iliac chain node
--- NOTE | 2020-08-03 16:37 | NM ---
EXAMINATION TYPE: NM bone scan whole body DATE OF EXAM: 08/03/2020 COMPARISON: CT abdomen pelvis 08/03/2020, 10/15/2018 HISTORY: Prostate cancer Delayed whole-body scanning was performed following the injection of 24.5 mCi Tc 99m MDP. Images wer e acquired 3.5 hours post injection. FINDINGS: There is a focus of radiotracer accumulation along the anterior C6 right rib end likely is posttrauma tic in nature. Solitary rib and metastasis is considered less likely. Some mild uptake at the first metatarsal phalangeal joint spaces bilaterally is likely degenerative i n nature. Degenerative type changes are likely present within the bilateral knees and the left first carpal metacarpal junction. There is focal radiotracer accumulation within the anterior left hip region. There is a focus of radi otracer accumulation along the inferior pelvis may be within the left pubic ramus. This may be due to the nonunion of pelvic fractures through this region. However, the sclerotic areas also correspond t o the uptake suggesting underlying metastasis is also present at this level. IMPRESSION: 1. Uptake within the left pelvis corresponding to suspected metastatic lesions. 2. Uptake at the anterior right lower rib and more likely post traumatic in nature.
== END | disposition home or self-care (01) ==
LOC: RADNMMAIN 09:20
PROVIDERS: ATTEND Urology
DX: S32.502A Unspecified fracture of left pubis, initial encounter for closed fracture (principal); S32.602A Unspecified fracture of left ischium, initial encounter for closed fracture; M89.8X8 Other specified disorders of bone, other site; C61 Malignant neoplasm of prostate
CPT/HCPCS: 82565; 84520; 74177; 36415; 78306; A9503; Q9967

== ENCOUNTER → 2021-02-04 | Outpatient (CLI) | payer MEDICARE, OTHER | END | disposition home or self-care (01) | LOC: LABPAT 10:11 | PROVIDERS: ATTEND Student in an Organized Health Care Education/Training Program | DX: Z01.812 Encounter for preprocedural laboratory examination (principal); Z20.822 Contact with and (suspected) exposure to COVID-19 | CPT/HCPCS: U0003; C9803; U0005 ==

== ENCOUNTER 2021-02-11 08:48 | Day surgery (SDC) | payer MEDICARE, OTHER ==
[2021-02-09 10:52] VITALS: BMI 28.3
[~2021-02-11 08:48] MED LIST: LIDOCAINE 1% (10MG/ML) FOR IV START INTRADERMA PRN
[2021-02-11 09:27] VITALS: TEMP 96.9
[2021-02-11] MEDS: LACTATED RINGERS 1,000 ML IV SCH ×2 (09:32→09:36)
[2021-02-11] MEDS ORDERED: PROPOFOL 10 MG/ML 20 ML VIAL IV ONE (09:37)
--- NOTE | 2021-02-11 10:01 | P.OP ---
Date of Procedure: 02/11/21 Preoperative Diagnosis: Screening colonoscopy Procedure(s) Performed: Colonoscopy Anesthesia: MAC Surgeon: Nathaniel Mccloud Estimated Blood Loss (ml): 0 Condition: stable Disposition: PACU Description of Procedure: Patient brought operative suite remained in the left lateral decubitus position underwent sedation per department of anesthesia prepped and draped usual sterile fashion timeout performed correct patient correct procedure correct site was verified rectal exam was performed no gross abnormalities are noted. Scope was passed from the rectum to the cecum with the slowly withdrawn being sure to visualize all cash of the colon on the way out, two cecal polyps noted and removed via hot snare polypectomy. There was a third polyp in the ascending colon removed via hot snare polypectomy. Sigmoid diverticuli were noted. Scope was retroflexed in the rectum no gross abnormalities are noted patient tolerated procedure well no apparent complications
[2021-02-11] MEDS ORDERED: LACTATED RINGERS 1,000 ML IV ONE (10:03)
[2021-02-11] MEDS ORDERED: hydrALAZINE HCL 20 MG/ML 1 ML VIAL IVP STA (10:30)
[2021-02-11 10:32] VITALS: RESP 18
[2021-02-11] MEDS ORDERED: hydrALAZINE HCL 20 MG/ML 1 ML VIAL ONE (10:32)
[2021-02-11 11:06] VITALS: BP 167/78; PULSE 65
== END 2021-02-11 11:11 | disposition home or self-care (01) ==
LOC: ORWHC2ENDO 08:48
PROVIDERS: ATTEND Student in an Organized Health Care Education/Training Program
DX: Z12.11 Encounter for screening for malignant neoplasm of colon (principal); D12.0 Benign neoplasm of cecum; D12.2 Benign neoplasm of ascending colon; Z86.010 Personal history of colon polyps; K57.30 Diverticulosis of large intestine without perforation or abscess without bleeding; K21.9 Gastro-esophageal reflux disease without esophagitis; F41.9 Anxiety disorder, unspecified; I25.10 Atherosclerotic heart disease of native coronary artery without angina pectoris; E78.5 Hyperlipidemia, unspecified; M19.90 Unspecified osteoarthritis, unspecified site; H91.90 Unspecified hearing loss, unspecified ear; H40.9 Unspecified glaucoma; H26.9 Unspecified cataract; Z85.6 Personal history of leukemia; I10 Essential (primary) hypertension; Z90.79 Acquired absence of other genital organ(s); Z87.11 Personal history of peptic ulcer disease; Z82.49 Family history of ischemic heart disease and other diseases of the circulatory system; Z97.2 Presence of dental prosthetic device (complete) (partial); Z79.82 Long term (current) use of aspirin; Z79.51 Long term (current) use of inhaled steroids; Z79.899 Other long term (current) drug therapy; Z79.890 Hormone replacement therapy; Z79.891 Long term (current) use of opiate analgesic; Z79.1 Long term (current) use of non-steroidal anti-inflammatories (NSAID)
CPT/HCPCS: 88305; 45385; J0360; J2704

== ENCOUNTER → 2021-07-07 | Outpatient (CLI) | payer MEDICARE, OTHER ==
--- NOTE | 2021-07-07 13:03 | CT ---
EXAMINATION TYPE: CT ChestAbdPelvis w con DATE OF EXAM: 07/07/2021 COMPARISON: CT abdomen and pelvis and whole body bone scan August 03, 2020 and older studies. HISTORY: Prostate cancer, leukemia. CT DLP: 1113.1 mGycm. Automated Exposure Control for Dose Reduction was Utilized. CONTRAST: CT scan of the thorax, abdomen and pelvis is performed with oral and with IV Contrast, patient inject ed with 100 mL of Isovue M300. FINDINGS: LUNGS: Mild to moderate bibasilar parenchymal fibrotic changes redemonstrated. No suspicious new nodu les or masses. MEDIASTINUM: There are no greater than 1 cm hilar or mediastinal lymph nodes. No cardiomegaly or pe ricardial effusion is seen. Coronary artery calcification is redemonstrated which is noted marker fo r underlying coronary artery disease. OTHER: No additional significant abnormality is seen. LIVER/GB: No significant abnormality is appreciated. PANCREAS: No significant abnormality is seen. SPLEEN: Spleen is enlarged at 15.8 cm long axis axial image 60 similar to prior. ADRENALS: No significant abnormality is seen. KIDNEYS: Some cortical thinning bilaterally redemonstrated. BOWEL: Oral contrast reaches level transverse colon. No suspicious small or large bowel dilatation. N ormal contrast-filled appendix from cecum in the right lower quadrant incidentally noted. Some divert icula in sigmoid colon redemonstrated GENITAL ORGANS: Prostate surgically absent. Scattered surgical clips and pelvic phleboliths. Stable t hin-walled 4.2 x 2.6 cm rim calcified right pelvic cyst or cystic lesion or fluid collection with loc al mass effect. Etiology uncertain but presumably benign. Surgical changes right groin region. LYMPH NODES: No new greater than 1cm abdominal or pelvic lymph nodes are appreciated. Stable prominen t but sub-8 mm short axis right iliac chain lymph node axial image 108 OSSEOUS STRUCTURES: Slight grade 1 retrolisthesis with moderate to severe narrowing L2-L3 level. Face t arthropathy lower lumbar spine. Focal sclerosis anterior right mid to lower rib corresponds to the area of abnormality on prior bone scan. Enlarged sclerotic lesions with nonhealed fracture through th e left superior and inferior pelvic rami are redemonstrated. Small sclerotic lesion inferior left sac roiliac joint redemonstrated. No definitive new sclerotic lesions. OTHER: No significant additional abnormality is seen. IMPRESSION: No new or enlarging mass or adenopathy. Stable sclerotic osseous metastatic disease with nonhealed pathologic fractures left pelvis redemonstrated.
--- NOTE | 2021-07-07 15:00 | NM ---
EXAMINATION TYPE: NM bone scan whole body DATE OF EXAM: 07/07/2021 COMPARISON: Same day whole body CT. Prior nuclear medicine bone scan August 03, 2020 HISTORY: History of prostate cancer and leukemia. Delayed whole-body scanning was performed following the injection of 22.2 mCi Tc 99m MDP. Images acq uired 3 hours post injection. Whole body images in anterior and posterior projection along with addit ional projections of the thorax abdomen and pelvis. FINDINGS: Persistent focus of increased radiotracer uptake anterior right mid to lower rib corresponds to scler otic expansile rib lesion near costochondral junction. Persistent increased radiotracer uptake left superior and pelvic rami corresponding to the nonhealed pathologic fractures. Persistent mild uptake at bilateral first metatarsal phalangeal joint consistent with degenerative ch romulo related to hallux valgus deformities bilaterally. Persistent increased uptake right knee joint p resumed related to degenerative change. New Radiotracer uptake in the lateral mid thoracic chest region appears to correspond to skin presume d contamination on the additional oblique projections. IMPRESSION: Nonhealed pathologic fractures left superior and inferior pelvic rami. Persistent radiotr acer uptake anterior right mid to lower rib correlates with additional ossific metastatic focus. No n ew ossific metastatic disease identified.
== END | disposition home or self-care (01) ==
LOC: RADNMMAIN 09:49
PROVIDERS: ATTEND Internal Medicine Hematology & Oncology
DX: C79.51 Secondary malignant neoplasm of bone (principal); M84.454A Pathological fracture, pelvis, initial encounter for fracture; Z85.46 Personal history of malignant neoplasm of prostate; Z85.6 Personal history of leukemia
CPT/HCPCS: 82565; 84520; 71260; 74177; 36415; 78306; A9503; Q9967 ×2

== ENCOUNTER → 2021-12-14 | Outpatient (CLI) | payer MEDICARE, OTHER ==
[2021-12-14 19:19] LABS: HCT 37.5 % (39.6-50.0); HGB 11.3 g/dL (13.0-17.0); MCH 28.4 pg (27.0-32.0); MCHC 30.1 g/dL (32.0-37.0); MCV 94.2 fL (80.0-97.0); Mean Platelet Volume 9.9 fL (9.5-12.2); NRBC Per 100 WBC 0 /100 WBCS (0.0-0.0); Platelet Count 450 X 10*3/uL (140-440); RBC 3.98 X 10*6/uL (4.40-5.60); RDW 13.8 % (11.5-14.5)
[2021-12-14 19:50] LABS: African American GFR (CKD) 75.2 (60.0-200.0); BUN/Creat Ratio 16.55 Ratio (12.00-20.00); Blood Urea Nitrogen 18.2 mg/dL (9.0-27.0); Calcium 8.8 mg/dL (8.7-10.3); Carbon Dioxide 28.2 mmol/L (20.0-27.5); Chloride 103 mmol/L (96-109); Glucose 115 mg/dL (70-110); Non-African American GFR(CKD) 64.9 (60.0-200.0); Sodium 143 mmol/L (135-145)
[2021-12-14 20:04] LABS: Testosterone <2.50 ng/mL (86.98-780.10)
[2021-12-14 20:06] LABS: Basophils # (M) 0 X 10*3/uL (0.00-0.10); Eosinophils # (M) 0.17 X 10*3/uL (0.04-0.35); Lymphocytes # (M) 7.64 X 10*3/uL (0.90-5.00); Neutrophils % (M) 50 %
== END | disposition home or self-care (01) ==
LOC: LABWHC1 14:25
PROVIDERS: ATTEND Radiology Radiation Oncology
DX: C61 Malignant neoplasm of prostate (principal)
CPT/HCPCS: 36415; 80048; 84403; 85025

== ENCOUNTER → 2022-03-02 | Outpatient (CLI) | payer MEDICARE, OTHER ==
[2022-03-02 23:04] LABS: Basophils # (A) 0.05 X 10*3/uL (0.00-0.10); Basophils % (A) 0.6 %; Eosinophils # (A) 0.15 X 10*3/uL (0.04-0.35); Eosinophils % (A) 1.9 %; HCT 37.7 % (39.6-50.0); HGB 12.2 g/dL (13.0-17.0); Immature Grans, Automated 0.3 %; Lymphocytes # (A) 2.51 X 10*3/uL (0.90-5.00); Lymphocytes % (A) 32.3 %; MCH 28.8 pg (27.0-32.0); MCHC 32.4 g/dL (32.0-37.0); MCV 89.1 fL (80.0-97.0); Mean Platelet Volume 10.1 fL (9.5-12.2); Monocytes # (A) 0.61 X 10*3/uL (0.20-1.00); Monocytes % (A) 7.9 %; NRBC Per 100 WBC 0 /100 WBCS (0.0-0.0); Neutrophils # (A) 4.42 X 10*3/uL (1.80-7.70); Platelet Count 177 X 10*3/uL (140-440); RBC 4.23 X 10*6/uL (4.40-5.60); WBC 7.76 X 10*3/uL (4.50-10.00)
[2022-03-02 23:45] LABS: African American GFR (CKD) 77.7 (60.0-200.0); Albumin 4.2 g/dL (3.8-4.9); Albumin/Globulin Ratio 1.43 (1.60-3.17); Anion Gap 10.1 mmol/L (10.00-18.00); BUN/Creat Ratio 18.41 Ratio (12.00-20.00); Blood Urea Nitrogen 19.7 mg/dL (9.0-27.0); Calcium 9.2 mg/dL (8.7-10.3); Carbon Dioxide 25.3 mmol/L (20.0-27.5); Globulin 2.9 g/dL (1.6-3.3); Non-African American GFR(CKD) 67.1 (60.0-200.0); Potassium 4.4 mmol/L (3.5-5.5); Total Bilirubin 0.3 mg/dL (0.30-1.20); Total Protein 7.1 g/dL (6.2-8.2)
== END | disposition home or self-care (01) ==
LOC: LABWHC1 14:20
PROVIDERS: ATTEND Radiology Radiation Oncology
DX: C61 Malignant neoplasm of prostate (principal); C91.10 Chronic lymphocytic leukemia of B-cell type not having achieved remission; C79.51 Secondary malignant neoplasm of bone; I10 Essential (primary) hypertension; Z85.72 Personal history of non-Hodgkin lymphomas; E55.9 Vitamin D deficiency, unspecified
CPT/HCPCS: 36415; 80053; 82306; 84443; 85025

== ENCOUNTER → 2022-04-03 | Outpatient (CLI) | payer MEDICARE, OTHER ==
[2022-04-03 17:53] LABS: Basophils # (A) 0.05 X 10*3/uL (0.00-0.10); Basophils % (A) 0.6 %; Eosinophils # (A) 0.26 X 10*3/uL (0.04-0.35); Eosinophils % (A) 3.3 %; HCT 38.2 % (39.6-50.0); HGB 12.2 g/dL (13.0-17.0); Immature Grans, Automated 0.5 %; Lymphocytes # (A) 2.38 X 10*3/uL (0.90-5.00); Lymphocytes % (A) 30.4 %; MCH 28.6 pg (27.0-32.0); MCHC 31.9 g/dL (32.0-37.0); MCV 89.7 fL (80.0-97.0); Mean Platelet Volume 9.8 fL (9.5-12.2); Monocytes # (A) 0.64 X 10*3/uL (0.20-1.00); Monocytes % (A) 8.2 %; NRBC Per 100 WBC 0 /100 WBCS (0.0-0.0); Neutrophils # (A) 4.45 X 10*3/uL (1.80-7.70); Platelet Count 194 X 10*3/uL (140-440); RBC 4.26 X 10*6/uL (4.40-5.60); RDW 13.2 % (11.5-14.5); WBC 7.82 X 10*3/uL (4.50-10.00)
== END | disposition home or self-care (01) ==
LOC: LABWHC1 12:40
PROVIDERS: ATTEND Radiology Radiation Oncology
DX: C61 Malignant neoplasm of prostate (principal); C91.10 Chronic lymphocytic leukemia of B-cell type not having achieved remission; C79.51 Secondary malignant neoplasm of bone; Z85.72 Personal history of non-Hodgkin lymphomas
CPT/HCPCS: 36415; 85025

== ENCOUNTER → 2022-04-28 | Outpatient (CLI) | payer MEDICARE, OTHER ==
[2022-04-28 19:05] LABS: Basophils # (A) 0.04 X 10*3/uL (0.00-0.10); Basophils % (A) 0.5 %; Eosinophils # (A) 0.24 X 10*3/uL (0.04-0.35); Eosinophils % (A) 3.2 %; HCT 36.8 % (39.6-50.0); HGB 11.8 g/dL (13.0-17.0); Immature Grans, Automated 0.5 %; Lymphocytes # (A) 2.41 X 10*3/uL (0.90-5.00); Lymphocytes % (A) 32.4 %; MCH 28.2 pg (27.0-32.0); MCHC 32.1 g/dL (32.0-37.0); Mean Platelet Volume 10.1 fL (9.5-12.2); Monocytes # (A) 0.66 X 10*3/uL (0.20-1.00); Monocytes % (A) 8.9 %; NRBC Per 100 WBC 0 /100 WBCS (0.0-0.0); Neutrophils # (A) 4.04 X 10*3/uL (1.80-7.70); Neutrophils % (A) 54.5 %; Platelet Count 189 X 10*3/uL (140-440); RBC 4.18 X 10*6/uL (4.40-5.60); RDW 13.4 % (11.5-14.5); WBC 7.43 X 10*3/uL (4.50-10.00)
== END | disposition home or self-care (01) ==
LOC: LABWHC1 13:27
PROVIDERS: ATTEND Radiology Radiation Oncology
DX: C61 Malignant neoplasm of prostate (principal); C91.10 Chronic lymphocytic leukemia of B-cell type not having achieved remission; C79.51 Secondary malignant neoplasm of bone; Z85.72 Personal history of non-Hodgkin lymphomas
CPT/HCPCS: 36415; 85025

== ENCOUNTER → 2022-05-25 | Outpatient (CLI) | payer MEDICARE, OTHER ==
[2022-05-25 18:22] LABS: Basophils # (A) 0.04 X 10*3/uL (0.00-0.10); Basophils % (A) 0.6 %; Eosinophils # (A) 0.27 X 10*3/uL (0.04-0.35); Eosinophils % (A) 3.8 %; HCT 38.1 % (39.6-50.0); Immature Grans, Automated 0.3 %; Lymphocytes # (A) 2.41 X 10*3/uL (0.90-5.00); Lymphocytes % (A) 33.5 %; MCHC 31.5 g/dL (32.0-37.0); MCV 88.8 fL (80.0-97.0); Mean Platelet Volume 10.4 fL (9.5-12.2); Monocytes # (A) 0.61 X 10*3/uL (0.20-1.00); Monocytes % (A) 8.5 %; NRBC Per 100 WBC 0 /100 WBCS (0.0-0.0); Neutrophils # (A) 3.85 X 10*3/uL (1.80-7.70); Neutrophils % (A) 53.3 %; Platelet Count 199 X 10*3/uL (140-440); RBC 4.29 X 10*6/uL (4.40-5.60); RDW 13.7 % (11.5-14.5)
== END | disposition home or self-care (01) ==
LOC: LABWHC1 11:42
PROVIDERS: ATTEND Radiology Radiation Oncology
DX: C79.51 Secondary malignant neoplasm of bone (principal); C61 Malignant neoplasm of prostate; C91.10 Chronic lymphocytic leukemia of B-cell type not having achieved remission; Z85.72 Personal history of non-Hodgkin lymphomas
CPT/HCPCS: 36415; 85025

== ENCOUNTER → 2023-10-30 | Outpatient (CLI) | payer MEDICARE, OTHER ==
[2023-10-30 15:32] LABS: HCT 37.9 % (37.2-50.0); HGB 12.6 g/dL (12.0-17.0); MCH 30.9 pg (27.0-32.0); MCHC 33.2 g/dL (32.0-37.0); MCV 92.9 FL (80.0-97.0); Mean Platelet Volume 9.8 FL (9.5-12.2); NRBC Per 100 WBC 0 X 10*3/uL (0.00-0.01); Platelet Count 174 X 10*3/uL (140-440); RBC 4.08 X 10*6/uL (4.10-5.60); RDW 13.4 % (11.5-14.5); WBC 13.86 X 10*3/uL (4.50-10.00)
[2023-10-30 15:34] LABS: ALT 10 U/L (8-49); AST 13 U/L (13-35); Albumin 4.3 g/dL (3.8-4.9); Albumin/Globulin Ratio 1.59 Ratio (1.60-3.17); Alkaline Phosphatase 91 U/L (41-126); BUN/Creat Ratio 15.46 Ratio (12.00-20.00); Blood Urea Nitrogen 20.1 mg/dL (9.0-27.0); C Reactive Protein <0.30 mg/dL (0.00-0.80); Calcium 9.9 mg/dL (8.7-10.3); Chloride 104 mmol/L (96-109); Globulin 2.7 g/dL (1.6-3.3); Glucose 89 mg/dL (70-110); Potassium 4.4 mmol/L (3.5-5.5); Sodium 142 mmol/L (135-145); Total Bilirubin 0.6 mg/dL (0.3-1.2)
[2023-10-30 17:10] LABS: Lymphocytes # (M) 8.32 X 10*3/uL (0.90-5.00)
[2023-10-30 17:29] LABS: Gliadin AB IgA, Deaminated Negative (Negative); Gliadin AB IgA, Unit 2.2 U/mL; Gliadin AB IgG, Deaminated Negative (Negative); Gliadin AB IgG, Unit <0.4 U/mL
[2023-10-30 17:37] LABS: Basophils # (M) 0.14 X 10*3/uL (0.00-0.10); Elliptocytes 2+; Eosinophils # (M) 0.14 X 10*3/uL (0.04-0.35); Monocytes # (M) 0.14 X 10*3/uL (0.20-1.00); Neutrophils # (M) 5.13 X 10*3/uL (1.80-7.70); Neutrophils % (M) 37 %
[2023-10-30 18:24] LABS: Erythrocyte Sedimentation Rate 8 mm/Hr (0-30)
== END | disposition home or self-care (01) ==
LOC: LABWHC1 11:14
PROVIDERS: ATTEND Internal Medicine Gastroenterology
DX: K52.9 Noninfective gastroenteritis and colitis, unspecified (principal)
CPT/HCPCS: 36415; 80053; 83516; 85025; 85652; 86140

== ENCOUNTER → 2024-03-07 | Outpatient (CLI) | payer MEDICARE, OTHER ==
[2024-03-07 07:33] LABS: African American GFR (CKD) 65 (>60 ml/min/1.73 sqM); Blood Urea Nitrogen 19 mg/dL (9-20); Non-African American GFR(CKD) 56 (>60 ml/min/1.73 sqM)
--- NOTE | 2024-03-10 14:45 | NM ---
EXAMINATION TYPE: NM bone scan whole body DATE OF EXAM: 03/07/2024 2:00 PM CLINICAL INDICATION:Male, 78 years old with history of C61 MALIGNANT NEOPLASM OF PROSTATE; COMPARISON: Nuclear medicine bone scan whole body 07/07/2021. TECHNIQUE: Intravenous administration 22.8 mCi Tc 99m MDP followed by multiple scintigraphic images o f the appendicular and axial skeleton. Additionally, small field of view planar anterior and posterio r images of the lumbosacral spine and pelvis. Lastly, coronal, transverse, and sagittal SPECT images of the lumbosacral spine and pelvis were generated for review.Lastly, small [id number] anterior, p osterior and lateral views of the chest were submitted for review. Images acquired 6 hours post injection. FINDINGS: No abnormal uptake is identified within the appendicular skeleton to suggest metastatic disease. Foc us of uptake in left wrist. Focal left wrist uptake could be the injection site or arthritis. Single focus of rib uptake in the right 10th rib is identified. Probability of a solitary rib focus represe nting metastasis is approximately 6%-8%. Left initial tuberosity uptake. Possible pubic bone uptake versus urine contamination. Focus of uptake in the right knee is likely osteoarthritis. Foci of uptak e in the bilateral first MTP joints is likely arthritis There is increased uptake within the bilateral shoulder, sternoclavicular, and sacroiliac joints con sistent with degenerative changes. No other photopenic areas or areas of increased activity are ident ified. Physiologic radiotracer activity is demonstrated in the kidneys and bladder. Urine contamination of t he skin suspected. IMPRESSION: 1. Nonhealed pathologic fractures left superior and inferior pelvic rami demonstrate persistent uptak e similar to prior exam. Persistent radiotracer uptake anterior right mid to lower rib correlates wit h additional ossific metastatic focus. No new ossific metastatic disease identified. Findings are s imilar to the prior study of 07/07/2021. See the results of the CT report for further information.
== END | disposition home or self-care (01) ==
LOC: RADNMMAIN 07:00
PROVIDERS: ATTEND Internal Medicine Hematology & Oncology
DX: C61 Malignant neoplasm of prostate (principal); M84.454A Pathological fracture, pelvis, initial encounter for fracture
CPT/HCPCS: 82565; 84520; 71260; 74177; 36415; 78306; A9503; Q9967

== ENCOUNTER 2024-05-28 01:41 | Emergency (ER) | payer MEDICARE, OTHER ==
[2024-05-28] MEDS ORDERED: EPINEPHrine 10 ML SYRINGE (0.1 MG/ML) ONE (01:43)
--- NOTE | 2024-05-28 01:56 | ED ---
CPR HPI - General Stated Complaint: Cardiac Arrest Time Seen by Provider: 05/28/24 01:42 Source: EMS Mode of arrival: EMS Limitations: altered mental status - History of Present Illness Initial Comments: History from EMS is that this patient is a 79-year-old male with recent treatment for prostate cancer. The patient reportedly found by family member lying on the floor next to bed and unresponsive. She called EMS and on their arrival they found patient unresponsive/asystolic and started ACLS protocol. The patient has had LMA airway with bagging. The patient has had IV and was given 4 mg total of epinephrine. MD Complaint: found unresponsive -: minute(s) Place: home Bystander CPR Performed: Yes Shock Advised: No Initial Findings in the Field: unresponsive, no respirations, no pulse ROSC in the Field: No Associated Injuries: No Treatments Prior to Arrival: other airway device, epinephrine mgs # (4) - Related Data Home Medications Medication Instructions Recorded Confirmed ALPRAZolam [Xanax] 0.25 mg PO BID PRN 03/30/15 02/09/21 Enalapril [Vasotec] 2.5 mg PO DAILY 03/30/15 02/09/21 Latanoprost Ophth [Xalatan 0.005%] 1 drops BOTH EYES HS 03/30/15 02/09/21 Omeprazole [PriLOSEC] 20 mg PO AC-BID 03/30/15 02/09/21 Simvastatin [Zocor] 40 mg PO DAILY 03/30/15 02/09/21 atenoloL [Tenormin] 25 mg PO DAILY 03/30/15 02/09/21 Aspirin 81 mg PO DAILY 07/06/15 02/11/21 Calcium Carbonate/Vitamin D3 1 tab PO DAILY 12/05/17 02/09/21 [Calcium 600-Vit D3 400 Caplet] Meloxicam [Mobic] 15 mg PO DAILY 12/05/17 02/09/21 Allergies Allergy/AdvReac Type Severity Reaction Status Date / Time No Known Allergies Allergy Verified 02/11/21 09:35 Review of Systems ROS Statement: Those systems with pertinent positive or pertinent negative responses have been documented in the HPI. ROS Other: All systems not noted in ROS Statement are negative. Limitations: ROS unobtainable due to patients medical condition Past Medical History Past Medical History: Cancer, Eye Disorder, GERD/Reflux, GI Bleed, Hyperlipidemia, Hypertension, Myocardial Infarction (ND), Osteoarthritis (OA), Prostate Disorder Additional Past Medical History / Comment(s): Colon polyps,SHINGLES SEP 2017, LT EAR [place], HX PROSTATE CANCER(SX) PT STATED TOLD AT [facility] A WEEK AGO THAT THE CANCER CAME BACK-NO TX YET Last Myocardial Infarction Date:: 2004 History of Any Multi-Drug Resistant Organisms: None Reported Past Surgical History: Heart Catheterization, Prostate Surgery Additional Past Surgical History / Comment(s): COLONOSCOPY,BACK INJECTIONS Past Anesthesia/Blood Transfusion Reactions: No Reported Reaction Past Psychological History: Anxiety Past Alcohol Use History: Rare Past Drug Use History: None Reported - Past Family History Father Family Medical History: Myocardial Infarction (ND) Mother Family Medical History: No Reported History Additional Family Medical History / Comment(s): " FROM OLD AGE" Brother(s) Family Medical History: Myocardial Infarction (ND) General Exam Limitations: altered mental status General appearance: other (Responsive. Signs of life) Head exam: Present: atraumatic, normocephalic Eye exam: Present: other (No response to light) ENT exam: Present: other (Mucosal pallor. LMA airway present) Neck exam: Present: normal inspection Respiratory exam: Present: rhonchi (With bagging.), other (No spontaneous inspiratory effort) Cardiovascular Exam: Present: other (No palpable PMI. No detectable pulses. No Cardiac sounds) GI/Abdominal exam: Present: soft. Absent: distended, tenderness Extremities exam: Present: normal inspection Back exam: Present: other (Lividity present) Neurological exam: Present: other (No neurologic signs of life) Expanded Eye Response: (1) no response Motor Response: (1) no motor response Verbal Response: (1) no verbal response Skin exam: Present: warm, dry, pallor, other (Lividity). Absent: rash Medical Decision Making - Medical Decision Making Patient's family member (Joshua) related that the patient had started chemotherapy for prostate cancer earlier this month. She states that since the treatment number weeks ago he never really seem to get back to his initial baseline. She states that he was spending most of the day in bed. His appetite was decreased. Over the past couple of days he had been having a cough but was not able to bring up anything. He also was having nausea. She states that she noted that he had stopped coughing for period of time tonight and then when she went to check on him he was unresponsive on the floor. On arrival here the patient went directly to trauma resuscitation bay. ACLS was continued for 2 rounds of epinephrine. The patient was in asystole on arrival and continued to be in asystole and given the downtime the patient was pronounced . I discussed the case with Dr. Glover. Was pt. sent in by a medical professional or institution (, PA, INSULATION HELPER, urgent care, hospital, or assisted...) When possible be specific @ -[No] Did you speak to anyone other than the patient for history (EMS, parent, family, police, friend...)? What history was obtained from this source @ -[No] Did you review nursing and triage notes (agree or disagree)? Why? @ -[I reviewed and agree with nursing and triage notes] Were old charts reviewed (outside hosp., previous admission, EMS record, old EKG, old radiological studies, urgent care reports/EKG's, assisted records)? Report findings @ -[No old charts were reviewed] Differential Diagnosis (chest pain, altered mental status, abdominal pain women, abdominal pain men, vaginal bleeding, weakness, fever, dyspnea, syncope, headache, dizziness, GI bleed, back pain, seizure, CVA, palpatations, mental health, musculoskeletal)? @ -[Differential Dyspnea: Coronary syndrome, arrhythmia, tamponade, asthma, COPD, pulmonary embolism, pneumonia, pneumothorax, pulmonary effusion, anaphylaxis, diabetic ketoacidosis, flailed chest, pulmonary contusion, diaphragmatic rupture, anemia, neuromuscular, this is not meant to be an all-inclusive list. EKG interpreted by me (3pts min.). @ -[As above] X-rays interpreted by me (1pt min.). @ -[None done] CT interpreted by me (1pt min.). @ -[None done] U/S interpreted by me (1pt. min.). @ -[None done] What testing was considered but not performed or refused? (CT, X-rays, U/S, labs)? Why? @ -[None] What meds were considered but not given or refused? Why? @ -[None] Did you discuss the management of the patient with other professionals (professionals i.e. , PA, INSULATION HELPER, lab, RT, psych nurse, social media developer, dolphin researcher, teacher, returning officer, human services case manager)? Give summary @ -[No] Was smoking cessation discussed for >3mins.? @ -[No] Was critical care preformed (if so, how long)? @ -[No] Were there social determinants of health that impacted care today? How? (Homelessness, low income, unemployed, alcoholism, drug addiction, transportation, low edu. Level, literacy, decrease access to med. care, half-way, rehab)? @ -[No] Was there de-escalation of care discussed even if they declined (Discuss DNR or withdrawal of care, Hospice)? DNR status @ -[No] What co-morbidities impacted this encounter? (DM, HTN, Smoking, COPD, CAD, Cancer, CVA, ARF, Chemo, Hep., AIDS, mental health diagnosis, sleep apnea, morbid obesity)? @ -[None] Was patient admitted / discharged? Hospital course, mention meds given and route, prescriptions, significant lab abnormalities, going to OR and other pertinent info. @ -[See the notes above Undiagnosed new problem with uncertain prognosis? @ -[No] Drug Therapy requiring intensive monitoring for toxicity (Heparin, Nitro, Insulin, Cardizem)? @ -[No] Were any procedures done? @ -[No] Diagnosis/symptom? @ -Acute cardiopulmonary arrest Acute, or Chronic, or Acute on Chronic? @ -[Acute Uncomplicated (without systemic symptoms) or Complicated (systemic symptoms)? @ -[default] Side effects of treatment? @ -[No] Exacerbation, Progression, or Severe Exacerbation? @ -[No] Poses a threat to life or bodily function? How? (Chest pain, [place], ND, pneumonia, PE, COPD, DKA, ARF, appy, cholecystitis, CVA, Diverticulitis, Homicidal, Suicidal, threat to staff... and all critical care pts) @ -Yes Disposition Clinical Impression: Cardiac arrest Disposition: Condition: Critical Is patient prescribed a controlled substance at d/c from ED?: No Referrals: Garth Glover [Primary Care Provider] - 1-2 days Preliminary Cause of : Cardiopulmonary arrest
== END 2024-05-28 04:58 | disposition expired ==
LOC: EC 01:41
DX: I46.9 Cardiac arrest, cause unspecified (principal); Z79.82 Long term (current) use of aspirin; Z79.899 Other long term (current) drug therapy
CPT/HCPCS: 92950; 99285; J0171